=== PATIENT | female | born 1990 | race Caucasian/White ===

== ENCOUNTER 2019-12-28 22:02 | Observation (INO) ==
[2019-12-28] MEDS ORDERED: diazePAM 5 MG TABLET PO ONE (23:04)
[2019-12-28] MEDS ORDERED: DEXAMETHASONE SOD INJ 10 MG/ML VIAL IM ONE (23:04)
[2019-12-28] MEDS ORDERED: LIDOCAINE 5% 1 PATCH TD STA (23:04)
[2019-12-29] MEDS ORDERED: ACETAMINOPHEN 1,000 MG/100 ML VIAL IV STA (00:44)
--- NOTE | 2019-12-29 00:56 | Emergency Department Note ---
Impression & Plan Strain of lumbar region, Intractable low back pain ED Provider Note NAME: NICOLASA REZA AGE: 29 SEX: F ARRIVES VIA: Ambulance INFORMANT: Patient, ED PROVIDER(S): Gustabo Pineda MD CHIEF COMPLAINT: Back pain PLAN: Disposition: Admit MEDICAL DECISION MAKING: The patient is a pleasant 29-year-old woman who presents emergency department with acute onset back pain when she bent over just prior to arrival experienced severe left lower back pain which she reports is so severe she is unable to move or ambulate and so called EMS and was brought to the hospital. She did receive Toradol by EMS and she reported some improvement but still was unable to ambulate. She denies any urinary retention and was able to provide a urine sample in the emergency department. She denies any history of similar episodes of back pain. Prior to today she reports feeling healthy denies any fevers, chills, cough, congestion, nausea, vomiting, diarrhea. On arrival the patient is uncomfortable no acute distress, afebrile stable vital signs. On exam the patient has mild tenderness of the left lower lumbar paraspinal muscles extending over the left gluteal region. There is no midline tenderness or step- offs. She has reproducible pain with bilateral straight leg raises but no radicular symptoms per se. She has 5/5 strength in bilateral lower extremities. DTRs within normal limits. No clonus. L5 intact bilaterally. Given the patient denies any symptoms to suggest cord compression and her exam is reassuring we initially proceeded with symptomatic treatment. She was given Valium, Decadron, lidocaine patch and she was reporting some improvement. We did agree to proceed with plan for outpatient follow-up and were providing a walker to help with stability given that she reports she lives alone and has no friends or family locally to help her. Unfortunately upon preparing the patient for discharge she was unable to get up from the stretcher and began to writhe in pain and became tearful. Thus, we did agree to proceed with basic blood work and MRI. However given the patient clearly has intractable back pain will provide narcotics for pain relief and admit for pain control. She is agreeable with this plan. Case was discussed with admitting resdient Dr. Kearns with Dr. Aguirre, [facility] hospitalist, who will evaluate the patient for admission. WBC, H/H, platelets wnl. Chemistry without acidosis. LFTs and electrolytes unremarkable. UA without convincing evidence of infection. MRI pending. Triage Nursing notes reviewed and agree them. Prior medical records reviewed Vital Signs: reviewed and remarkable for no significant abnormalities Differential diagnosis: Musculoskeletal, disc herniation, fracture, metastatic disease, cord compressio n, discitis, sciatica, cauda equina, infection, aortic disease, renal colic, gastrointestinal, as well as other pathologies. ER treatment provided: See below. Laboratory studies: See below Consultation(s): Case was discussed with admitting resdient Dr. Kearns with Dr. Aguirre, [facility] hospitalist, who will evaluate the patient for admission. HPI: The patient is a pleasant 29-year-old woman who presents emergency department with acute onset back pain when she bent over just prior to arrival experienced severe left lower back pain which she reports is so severe she is unable to move or ambulate and so called EMS and was brought to the hospital. She did receive Toradol by EMS and she reported some improvement but still was unable to ambulate. She denies any urinary retention and was able to provide a urine sample in the emergency department. She denies any history of similar epi sodes of back pain. Prior to today she reports feeling healthy denies any fevers, chills, cough, congestion, nausea, vomiting, diarrhea. ROS: See above HPI for pertinent positives & negatives. A total of 10 systems reviewed and were otherwise negative. PAST MEDICAL HISTORY:See Below PAST SURGICAL HISTORY:See Below FAMILY HISTORY:See Below SOCIAL HISTORY:See Below HOME MEDICATIONS:See Below ALLERGIES:See Below VITALS:See Below PHYSICAL EXAMINATION: GENERAL: Awake, alert, uncomfortable-appearing, in no distress HENT: Normocephalic, atraumatic. Oropharynx with dry mucous membranes and otherwise unremarkable. EYES: Normal conjunctiva. Sclera non-icteric. NECK: Supple. No nuchal rigidity. FROM. No JVD. RESPIRATORY: Clear to auscultation. CARDIAC: Regular rate, normal rhythm. Extremities warm and well perfused. Pulses equal. ABDOMEN: Soft, non-distended. No tenderness to palpation. No rebound or guarding. No masses. RECTAL: Deferred. MUSCULOSKELETAL: Chest examination reveals no tenderness. The back is symmetrical on inspection without obvious abnormality. There is no CVA tenderness to palpation. No joint edema. LOWER EXTREMITIES: Calves are equal size bilaterally and non-tender. No edema. No discoloration. NEURO: Normal sensorium. No sensory or motor deficits noted. 5/5 strength and SILT x 4 extremities. DTRs wnl. No clonus. L5 intact bilaterally. SKIN: No rash or jaundice noted. Gustabo Pineda MD Past Med/Surg History Medical History ADHD Anxiety Social History Smoking Status: Current every day smoker Tobacco Type: E-cigarettes / Vaping Preferred Language: Indonesian current occupational status: student Feels Safe at Home: Yes Allergies Allergies Allergy/AdvReac Type Severity Reaction Status Date / Time sulfamethoxazole Allergy Hives Verified 12/28/19 22:27 [From Bactrim] trimethoprim [From Bactrim] Allergy Hives Verified 12/28/19 22:27 Home Meds Home Medications Medication Instructions Recorded Confirmed dextroamphetamine-amphetamine 10 mg PO BID 07/30/18 12/28/19 [Adderall] Previous Rx's Medication Instructions Recorded ibuprofen 800 mg PO Q8H PRN #30 tab 12/28/19 Results & Data (ED) Vital Signs Vital Signs - 24 hr 12/28/19 22:10 12/29/19 00:01 12/29/19 02:40 Temperature 37.2 C Temperature Source Oral Pulse Rate 82 Pulse Rate [Apical] 74 68 Respiratory Rate 18 16 16 Respiratory Effort / Characteristics Non-Labored Spontaneous Respiratory Depth Normal Blood Pressure 129/74 Blood Pressure [Left Arm] 142/99 H 136/88 Blood Pressure Mean 92 Blood Pressure Mean [Left Arm] 113 104 Blood Pressure Position Sitting Pulse Oximetry 97 100 96 Oxygen Delivery Method Room Air Room Air Room Air Sepsis Recent Fever Within 48 Hours No Sepsis New/Unexplained Change in Mental Status No Sepsis Action Taken by Nursing No Action Required 12/29/19 03:41 Temperature Temperature Source Pulse Rate 70 Pulse Rate [Apical] Respiratory Rate 18 Respiratory Effort / Characteristics Respiratory Depth Blood Pressure 141/83 H Blood Pressure [Left Arm] Blood Pressure Mean Blood Pressure Mean [Left Arm] Blood Pressure Position Pulse Oximetry 98 Oxygen Delivery Method Room Air Sepsis Recent Fever Within 48 Hours Sepsis New/Unexplained Change in Mental Status Sepsis Action Taken by Nursing Laboratory Data Attestation: I reviewed the patient's lab results. Result diagrams: 12/29/19 01:00 12/29/19 01:00 Lab Results 12/28/19 12/28/19 12/29/19 Range/Units 22:25 22:47 01:00 WBC 8.77 (4.8-10.8) K/uL RBC 4.38 (4.2-5.4) M/uL Hgb 14.1 (12.0-16.0) g/dL Hct 41.6 (37-47) % MCV 95.0 (80-100) fL MCH 32.2 (25-34) pg MCHC 33.9 (32-36) g/dL RDW Std Deviation 45.8 (36.4-46.3) fL RDW Coeff of Anitha 13.2 (11.5-14.5) % Plt Count 283 (130-400) K/uL MPV 10.4 (7.4-10.4) fL Immature Gran % (Auto) 0.1 % Neut % (Auto) 83.8 % Lymph % (Auto) 12.5 % [place] % (Auto) 2.7 % Eos % (Auto) 0.7 % Baso % (Auto) 0.2 % Neut # (Auto) 7.34 H (1.4-6.5) K/uL Lymph # (Auto) 1.10 L (1.2-3.4) K/uL [place] # (Auto) 0.24 (0.11-0.59) K/uL Eos # (Auto) 0.06 (0-0.5) K/uL Baso # (Auto) 0.02 (0-0.2) K/uL Immature Gran # (Auto) 0.01 (0.00-0.02) K/uL Sodium (136-145) mmol/L Potassium (3.5-5.1) mmol/L Chloride (98-107) mmol/L Carbon Dioxide (21-32) mmol/L Anion Gap (3-11) BUN (7-18) mg/dl Creatinine (0.6-1.2) mg/dl Est Cr Clr Drug Dosing ml/min Est GFR ( Amer) Est GFR (Non-Af Amer) BUN/Creatinine Ratio (10-20) Glucose (70-99) mg/dl Calcium (8.5-10.1) mg/dl Total Bilirubin (0.2-1) mg/dl AST (15-37) U/L ALT (12-78) U/L Alkaline Phosphatase (45-117) U/L Total Protein (6.4-8.2) gm/dl Albumin (3.4-5.0) gm/dl Globulin (2.5-4.0) gm/dl Albumin/Globulin Ratio (0.9-2) Urine Color Yellow Urine Appearance Slightly Cloudy (Clear) Urine pH 7.0 (4.5-7.5) Ur Specific [place] 1.015 (1.000-1.030) Urine Protein Negative (Negative) Urine Glucose (UA) Negative (Negative) Urine Ketones Negative (Negative) Urine Blood 1+ H (Negative) Urine Nitrite Negative (Negative) Urine Bilirubin Negative (Negative) Urine Urobilinogen Negative (Negative) Ur Leukocyte Esterase Negative (Negative) Urine RBC 0-4 (0-4) /hpf Urine WBC 0-5 (0-5) /hpf Ur Epithelial Cells 20-30 H (0-5) /lpf Urine Bacteria 1+ H (Negative) POC Ur Test NEG (NEG) 12/29/19 Range/Units 01:00 WBC (4.8-10.8) K/uL RBC (4.2-5.4) M/uL Hgb (12.0-16.0) g/dL Hct (37-47) % MCV (80-100) fL MCH (25-34) pg MCHC (32-36) g/dL RDW Std Deviation (36.4-46.3) fL RDW Coeff of Anitha (11.5-14.5) % Plt Count (130-400) K/uL MPV (7.4-10.4) fL Immature Gran % (Auto) % Neut % (Auto) % Lymph % (Auto) % [place] % (Auto) % Eos % (Auto) % Baso % (Auto) % Neut # (Auto) (1.4-6.5) K/uL Lymph # (Auto) (1.2-3.4) K/uL [place] # (Auto) (0.11-0.59) K/uL Eos # (Auto) (0-0.5) K/uL Baso # (Auto) (0-0.2) K/uL Immature Gran # (Auto) (0.00-0.02) K/uL Sodium 140 (136-145) mmol/L Potassium 4.0 (3.5-5.1) mmol/L Chloride 109 H (98-107) mmol/L Carbon Dioxide 24 (21-32) mmol/L Anion Gap 7.0 (3-11) BUN 14 (7-18) mg/dl Creatinine 0.82 (0.6-1.2) mg/dl Est Cr Clr Drug Dosing 113.7 ml/min Est GFR ( Amer) 112.1 Est GFR (Non-Af Amer) 96.7 BUN/Creatinine Ratio 16.6 (10-20) Glucose 100 H (70-99) mg/dl Calcium 8.4 L (8.5-10.1) mg/dl Total Bilirubin 0.4 (0.2-1) mg/dl AST 14 L (15-37) U/L ALT 30 (12-78) U/L Alkaline Phosphatase 74 (45-117) U/L Total Protein 7.1 (6.4-8.2) gm/dl Albumin 3.7 (3.4-5.0) gm/dl Globulin 3.4 (2.5-4.0) gm/dl Albumin/Globulin Ratio 1.1 (0.9-2) Urine Color Urine Appearance (Clear) Urine pH (4.5-7.5) Ur Specific [place] (1.000-1.030) Urine Protein (Negative) Urine Glucose (UA) (Negative) Urine Ketones (Negative) Urine Blood (Negative) Urine Nitrite (Negative) Urine Bilirubin (Negative) Urine Urobilinogen (Negative) Ur Leukocyte Esterase (Negative) Urine RBC (0-4) /hpf Urine WBC (0-5) /hpf Ur Epithelial Cells (0-5) /lpf Urine Bacteria (Negative) POC Ur Test (NEG) Administered Medications Discontinued Medications Dexamethasone (Dexamethasone Sod Inj 10 Mg/Ml Vial) 10 mg IM NOW ONE Stop: 12/28/19 23:05 Last Admin: 12/28/19 23:11 Dose: 10 mg Documented by: [id number] Diazepam (Diazepam 5 Mg Tablet) 5 mg PO NOW ONE Stop: 12/28/19 23:05 Last Admin: 12/28/19 23:11 Dose: 5 mg Documented by: [id number] Acetaminophen (Ofirmev) 1,000 mg in 100 mls @ 400 mls/hr IV NOW STA Stop: 12/29/19 00:58 Last Infusion: 12/29/19 01:40 Dose: 0 mls/hr Documented by: [id number] Admin: 12/29/19 01:12 Dose: 400 mls/hr Documented by: [id number] Lidocaine (Lidocaine 5% 1 Patch) 1 patch TD NOW STA Stop: 12/28/19 23:05 Last Admin: 12/28/19 23:10 Dose: 1 patch Documented by: [id number] Morphine Sulfate (Morphine Sulfate 10 Mg/Ml Carp/Vial) 6 mg IV NOW STA Stop: 12/29/19 00:45 Last Admin: 12/29/19 01:26 Dose: Not Given Documented by: [id number] Blood Pressure Blood Pressure Findings: Elevated blood pressure Blood Pressure Disposition: elevated BP felt to be situational Discharge Plan Visit Data Chief Complaint: Back Injury/Pain Stated Complaint: BACK PAIN ED Provider: Gustabo Pineda Discharge Problem: Strain of lumbar region, Intractable low back pain Patient Disposition: Home - Self-Care Condition: Good Discharge Instructions Laura/Other Patient Handouts: ED Back Sprain/Strain Activity Restrictions/Additional Instructions: Please follow up with your primary care physician in the next 1-3 days for re- evaluation. Your symptoms are likely related to a lumbar strain with associated muscle spasms. Otherwise, your exam did not show signs of an emergent condition at this time. Acetaminophen (650mg every 4 hours) and Ibuprofen (800mg every 8 hours) for pain. Apply heating pad at 20 minute intervals for additional muscle relaxation. [id number] Lidoderm patch for additional pain relief. Avoid movements, which may provoke symptoms. Drink plenty of fluids to ensure hydration. Return to the emergency department for worsening symptoms as described in the accompanying instructions. Interventions: ED Discharge Assessment Last Done: 12/29/19 03:41 Forms Stand Alone Forms: [facility], [facility] Emergency Department, Important Visit Information Prescriptions Prescriptions: New ibuprofen 800 mg tablet 800 mg PO Q8H PRN (Reason: pain) Qty: 30 RF: 0 No Action dextroamphetamine-amphetamine [Adderall] 10 mg Tablet 10 mg PO BID RF: 0 Referrals Referrals: [facility] [Primary Care Provider] -
[2019-12-29 01:10] LABS: Basophils # (auto) 0.02 K/uL (0-0.2); Basophils % (auto) 0.2 %; Eosinophils # (auto) 0.06 K/uL (0-0.5); Eosinophils % (auto) 0.7 %; Hematocrit (blood only) 41.6 % (37-47); Hemoglobin 14.1 g/dL (12.0-16.0); Immature Granulocytes # (auto) 0.01 K/uL (0.00-0.02); Immature Granulocytes % (auto) 0.1 %; Lymphocytes % (auto) 12.5 %; Mean Corpuscular Hemoglobin 32.2 pg (25-34); Mean Corpuscular Hgb Conc 33.9 g/dL (32-36); Mean Platelet Volume 10.4 fL (7.4-10.4); Monocytes # (auto) 0.24 K/uL (0.11-0.59); Monocytes % (auto) 2.7 %; Neutrophils # (auto) 7.34 K/uL (1.4-6.5); Neutrophils % (auto) 83.8 %; Platelet Count 283 K/uL (130-400); RDW Coefficient of Variation 13.2 % (11.5-14.5); RDW Standard Deviation 45.8 fL (36.4-46.3); Red Blood Count 4.38 M/uL (4.2-5.4); White Blood Count 8.77 K/uL (4.8-10.8)
[2019-12-29] MEDS: MoRPHine SULFATE 10 MG/ML CARP/VIAL IV STA ×2 (01:11→01:26)
--- NOTE | 2019-12-29 01:24 | History & Physical Report ---
Date of Service December 29, 2019 Assessment & Plan (1) Lumbar back pain: Bronwyn is a 29yo F with a PMHx of ADHD who presents with sudden onset back pain after bending over preventing her from ambulating. She is admitted for intractable back pain prevention ambulation. Back Pain with inability to ambulate - Acute onset after bending. - Mild improvement in ED with lidocaine, valium, toradol, decadron - No urinary retention, numbness/tingling, focal neurologic weakness, or saddle anesthesia - MRI L5-S1 posterior disc bulge with superimposed small central disc extrusion. Mild lateral recess and foraminal narrowing. Left facet arthropathy. Otherwise negative exam. - Follow observation in ED patient unable to ambulate from bed to wheelchair/walker and was recommended for admission - Defer narcotics - K-pad, baclofen, lidocaine PRN Toradol 15 mg IV every 6 as needed - If not improving or ambulating, consider pain management consult for facet arthropathy ADHD - On adderall outpatient, no irregularities. May hold while inpt. DVT PPx: SCDs Diet: Regular Dispo: Med/Surg Code Status: Full (2) Strain of lumbar region: History of Present Illness Chief Complaint: Back Pain Primary Care Provider: [facility] Bornwyn is a 29yo F with a PMHx of ADHD who presents with sudden onset back pain after bending over preventing her from ambulating. Bronwyn reports she was in her otherwise normal state of health today and was "doing great even went for a run" until the evening when she bent over to pick something up and 'felt a sudden pop and pull' and had instant 10/10 pain which caused her to fall to the floor where she could not move for an hour or two. After reaching the phone she called EMS who gave her toradol and transported her to [facility] ED where she recieved valium, decadron, and lidocaine with some improvement in her pain. She reports at rest she is 'ok' but with any movement of her feet/back she suddenly develops '10/10 awful' pain limited to her L lower back and which pino snot radiate into her leg. She reports that this pain makes her unable to sit up or get out of bed, and comes in waves improved by not moving but quickly brought back with any movement. She has urinated since her injury withotu difficulty or pain. No bowel incontinence. No numbness/tingling in the legs or feet. Denies other symptoms. Denies hx of similar injuries. Has been on narcotics only after gallbladder surgery and one short course with a sports injury. PDMP with no narcotic fills. Pt on adderall for ADHD. Family History of back surgeries. MedHx: ADHD Medications: Reviewed. PDMP reviewed. 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 PCP is Dr. Brooks at [facility]. No family in the area, lives along and independently ambulatory. Allergies Allergy/AdvReac Type Severity Reaction Status Date / Time sulfamethoxazole Allergy Hives Verified 12/28/19 22:27 [From Bactrim] trimethoprim [From Bactrim] Allergy Hives Verified 12/28/19 22:27 Home Medications Home Medications Medication Instructions Recorded Confirmed Type dextroamphetamine-amphetamine 10 mg PO BID 07/30/18 12/28/19 History [Adderall] ibuprofen 800 mg PO Q8H PRN #30 tab 12/28/19 Rx Past Med/Surg History Medical History ADHD Anxiety Social History Smoking Status: Current some day smoker Tobacco Type: E-cigarettes / Vaping Second Hand Exposure: No; Do You Dip or Chew Tobacco: No; Tobacco Cessation Education Requested by Patient: No Hx Alcohol Use: Yes Alcohol type: beer Hx Substance Use: No Preferred Language: Chinese Communication Ability: Effective Maintenance Fitter Required: No Beliefs That Will Affect Care: None Current Living Situation: Alone current occupational status: student Other Information That Helps Us Care for You: No Feels Safe at Home: Yes Safety Concerns: Feels Safe At This Time Review of Systems Review of Systems: Constitutional: Denies fever, chills, malaise, weight change Eyes: Denies double vision, vision change, eye pain ENT: Denies ear pain, sore throat, sinus pain Cardiovascular: Denies Chest pain, chest pressure, palpitations, extremity swelling Respiratory: Denies shortness of breath, cough, sputum production, difficulty breathing Gastrointestinal: Denies abdominal pain, nausea, vomiting, constipation, diarrhea Genitourinary: Denies pain with urination, urinary urgency, urinary frequency Musculoskeletal: Denies weakness. Pain as noted in HPI. Integumentary:Denies rash, lesions, bruising Neurological: Denies headache, numbness, tingling, focal weakness Physical Exam Physical Exam: General: A&Ox3. NAD. Cooperative. HEENT: Atraumatic, normocephalic. Pulm: CTAB A&P. -wheezes, -rales, -rhonchi. Symmetrical chest rise. No increase work of breathing. No respiratory distress. Cardiac: RRR, -mrg. Radial pulses intact and symmetrical. Abdominal: Nontender, nondistended, soft. BS present. CN II: Visual rai are full to confrontation. Pupils are equal and react to light and accomidation. Visual acuity grossly intact. CN III, IV, : At primary gaze, there is no eye deviation. EoM intact without nystagmus. No visual field cuts. CN V: Facial sensation is intact to soft touch in all 3 divisions bilaterally. CN VII: No facial asymmetry, full strength to eyebrow raise, smile, eye close, and cheek puff. CN VII: Hearing is grossly intact. CN IX, X: Phonation is normal without dysarthria. CN XI: Head turning intact CN XII: Tongue protrudes midline. Spinal: TTP at L lumbar paraspinal muscularure with increased tone. No midline spinal tenderness. No step-off on palpation. No overt lesions/deformities. Sensory: Light touch, pinprick intact in upper and low extremities without deficit or asymmetry. Strength: RUE: elbow flexion/extension, finger flexion/extension, channel specialist strength, in terosseous 5/5 LUE: elbow flexion/extension, finger flexion/extension, channel specialist strength, interosseous 5/5 RLE: Plantar/dorsiflexion intact 5/5, but limited by pain at L lower back. LLE: Plantar/dorsiflexion intact 5/5, but quickly limited by pain at L lower back. Results & Data Results & Data ([facility]) Vital Signs (Past 12 Hours) Vital Signs Temp Pulse Pulse Resp BP BP Pulse Ox 12/29/19 00:01 74 16 142/99 H 100 12/28/19 22:10 37.2 C 82 18 129/74 97 Supervising Physician Co-Signing Physician Notes Attending addendum: I have physically seen this patient, have supervised the medical residents activities, and agree with the H&P unless as otherwise noted. Assessment and Plan: Intractable low back pain/ambulatory dysfunction- MRI reveals L5-S1 posterior disc bulge with superimposed small central disc protrusion Left facet arthropathy. Treat conservatively with K pad, baclofen 10 mg p.o. 3 times daily as needed and Lidoderm patch. Toradol 15 mg IV every 6 hours as needed breakthrough pain Consult pain management and or orthopedic spine surgery if pain persists Remaining orders and notations as noted. Resident Activity Tracking Resident Involvement: Resident Care Provided Care Provided: Adult [facility]
[2019-12-29 01:28] LABS: Albumin Level 3.7 gm/dl (3.4-5.0); BUN Creatinine Ratio 16.6 (10-20); Calcium 8.4 mg/dl (8.5-10.1); Creatinine Clr Calc Pharmacy 113.7 ml/min; Est GFR (African American) 112.1; Est GFR (Non-African American) 96.7
[2019-12-29 01:31] LABS: Albumin Globulin Ratio 1.1 (0.9-2); Bilirubin,Total 0.4 mg/dl (0.2-1); Globulin 3.4 gm/dl (2.5-4.0); Total Protein 7.1 gm/dl (6.4-8.2)
[2019-12-29 02:06] LABS: Appearance Urine Slightly Cloudy (Clear); Bilirubin Urine Negative (Negative); Blood Urine 1+ (Negative); Color Urine Yellow; Glucose Urine UA Negative (Negative); Ketones Urine Negative (Negative); Leukocyte Esterase Urine Negative (Negative); Nitrite Urine Negative (Negative); Protein Urine Negative (Negative); Specific Gravity Urine 1.015 (1.000-1.030); Urobilinogen Urine Negative (Negative)
[2019-12-29 02:14] LABS: Bacteria Urine 1+ (Negative); Epithelial Cell Urine 20-30 /lpf (0-5); RBC Urine 0-4 /hpf (0-4); WBC Urine 0-5 /hpf (0-5)
[2019-12-29] MEDS ORDERED: KETOROLAC TROMETHAMINE 15 MG/ML VIAL IV ONE (04:40)
--- NOTE | 2019-12-29 07:08 | Magnetic Resonance Report ---
MR lumbar spine wo con CLINICAL HISTORY: intractable back pain TECHNIQUE: Sagittal and axial T1, T2 and STIR images were obtained. COMPARISON STUDY: None OBSERVATIONS: The vertebral bodies and posterior elements appear intact. There is no abnormal bony signal present t o suggest a marrow replacement process. L1-2: No disc protrusions or extrusions. No evidence of spinal canal or neural foraminal compromise. L2-3: No disc protrusions or extrusions. No evidence of spinal canal or neural foraminal compromise. L3-4: No disc protrusions or extrusions. No evidence of spinal canal or neural foraminal compromise. L4-5: No disc protrusions or extrusions. No evidence of spinal canal or neural foraminal compromise. L5-S1: There is an annular fissure and small central disc protrusion with minimal effacement the ante rior thecal sac. There is no foraminal stenosis. The conus medullaris and cauda equina appear normal. IMPRESSION: Small central disc protrusion at the L5-S1 level. ACT 112: Negative or not required by law. Electronically signed by: Serafin Fowler M.D. 12/29/2019 7:07 AM
[2019-12-29] MEDS: ACETAMINOPHEN 325 MG TAB PO PRN ×2 (07:59→14:41)
[2019-12-29] MEDS: BACLOFEN 10 MG TAB PO SCH ×2 (07:59→21:46)
--- NOTE | 2019-12-29 10:48 | Consultation ---
Date of Consultation December 29, 2019 Assessment & Plan (1) Intractable low back pain: 29-year-old presents with acute lower back pain x24 hours. MRI shows small disc protrusion L5-S1 with degenerative changes and retrolisthesis. No radicular complaints present. We will therefore recommend treating this conservatively. Recommend rest for the next 24 to 48 hours. Continue with aggressive pain control. Consider use of steroids. Typically within 10 to 14 days patient is back to baseline and most of her current symptoms will have resolved. At that point time her activity is as tolerated. Will sign off for now. If you have any further questions please do not hesitate to contact us. Follow-up on as-needed basis. Supervising Physician Co-Signing Physician Notes Dr. Cash Cobian History of Present Illness This is a pleasant 29-year-old female that we are asked to see in consultation regarding acute lower back pain. Patient is a student at [employer] and was in her apartment and bent over to pet her cat yesterday and had an acute onset of severe lower back pain. She had difficulty walking. She presented to the emergency room yesterday and was subsequently admitted for pain control. She denies radicular leg pain, paresthesia, numbness. She has had episodes of acute lower back pain in the past but not quite to this degree. Denies bowel or bladder dysfunction. Does see a chiropractor on an as-needed basis in the past. Will occasionally take ibuprofen for pain control. Attending Physician: Ming Aguirre MD Allergies Allergy/AdvReac Type Severity Reaction Status Date / Time sulfamethoxazole Allergy Hives Verified 12/28/19 22:27 [From Bactrim] trimethoprim [From Bactrim] Allergy Hives Verified 12/28/19 22:27 Home Medications Home Medications Medication Instructions Recorded Confirmed Type dextroamphetamine-amphetamine 10 mg PO BID 07/30/18 12/28/19 History [Adderall] ibuprofen 800 mg PO Q8H PRN #30 tab 12/28/19 Rx Patient History Medical History ADHD Anxiety Social History Smoking Status: Current some day smoker Tobacco Type: E-cigarettes / Vaping Second Hand Exposure: No; Do You Dip or Chew Tobacco: No; Tobacco Cessation Education Requested by Patient: No Hx Alcohol Use: Yes Alcohol type: beer Hx Substance Use: No Preferred Language: Czech Communication Ability: Effective Manager [employer] Required: No Beliefs That Will Affect Care: None Current Living Situation: Alone current occupational status: student Other Information That Helps Us Care for You: No Feels Safe at Home: Yes Safety Concerns: Feels Safe At This Time Review of Systems Review of Systems: All systems reviewed & are unremarkable except as noted in HPI & below Physical Exam Physical Exam: She is seen in bed 355 bed 1. She is cooperative exam. She is quite uncomfortable during our exam. Alert and oriented x3. She is able to roll over but with quite a bit of pain. She is tender to palpation to the midline lower lumbar spine. No abnormal skin markings, lacerations, ecchymosis throughout the thoracolumbar spine. Negative tension signs bilaterally. Motor testing is 5/5 bilateral EHL, dorsiflexion, plantarflexion, quadriceps, hamstrings, hip flexors, hip abductor's and hip adductor's. Sensations intact bilateral lower extremities. Constitutional: WD/WN, vitals as above Eyes: normal visual rai by confrontation ENMT: external ear and nose normal, oropharynx normal Neck: normal visual inspection Respiratory: normal respiratory effort Cardiovascular: Vessels: dorsalis pedis pulses present Chest (Breasts): Chest: normal inspection of chest Gastrointestinal (Abdomen): Inspection/Auscultation: abdomen normal to inspection Musculoskeletal: no cyanosis or clubbing, extremities motor strength 5/5 Spine: + limited thoraco-lumbar ROM Extremities: strength 5/5 throughout Skin: no rashes, warm and dry Neurologic: patellar DTR's 2+ bilat, sensation intact normal touch/pain/proprioception and moves all extremities Psychiatric: A+Ox3, euthymic affect Results & Data ([facility]) Vital Signs (Past 12 Hours) Vital Signs Temp Pulse Pulse Pulse Resp BP BP 12/29/19 07:21 37.1 C 71 15 107/70 12/29/19 04:30 36.6 C 66 18 119/76 12/29/19 03:41 70 18 141/83 H 12/29/19 02:40 68 16 136/88 12/29/19 00:01 74 16 142/99 H Pulse Ox 12/29/19 07:21 96 12/29/19 04:30 96 12/29/19 03:41 98 12/29/19 02:40 96 12/29/19 00:01 100 Diagnostic Findings [place], [place] [phone] Magnetic Resonance Report Patient: Ana REZA Date: 12/29/19 MR#: [id number]: [address] Acct ID:[id number]: Date: [address] Zip: [place] [address] Age: 29Location: 3W Sex: F Room/Bed: [facility] Att Phy: Ming Aguirre M.D.Diagnosis: BACK PAIN [facility]: [facility] Fam Phy:Interpreting Phy: Serafin Fowler MD Admit Phy: Giovani Kearns MD Ordering Phy: Gustabo Pineda M.D. cc: ~ MR lumbar spine wo con CLINICAL HISTORY: intractable back pain TECHNIQUE: Sagittal and axial T1, T2 and STIR images were obtained. COMPARISON STUDY: None OBSERVATIONS: The vertebral bodies and posterior elements appear intact. There is no abnormal bony signal present to suggest a marrow replacement process. L1-2: No disc protrusions or extrusions. No evidence of spinal canal or neural foraminal compromise. L2-3: No disc protrusions or extrusions. No evidence of spinal canal or neural foraminal compromise. L3-4: No disc protrusions or extrusions. No evidence of spinal canal or neural foraminal compromise. L4-5: No disc protrusions or extrusions. No evidence of spinal canal or neural foraminal compromise. L5-S1: There is an annular fissure and small central disc protrusion with minimal effacement the anterior thecal sac. There is no foraminal stenosis. The conus medullaris and cauda equina appear normal. IMPRESSION: Small central disc protrusion at the L5-S1 level. ACT 112: Negative or not required by law. Electronically signed by: Serafin Fowler M.D. 12/29/2019 7:07 AM Dictated: 12/29/19704 Transcribed: 12/29/19704
[2019-12-29] MEDS: KETOROLAC TROMETHAMINE 15 MG/ML VIAL IV PRN ×2 (11:22→17:56)
[2019-12-29] MEDS: predniSONE 50 MG TAB PO SCH (12:35)
--- NOTE | 2019-12-29 18:07 | Hospitalist Progress Note ---
Date of Service December 29, 2019 Assessment & Plan (1) Intractable low back pain: - MRI with small disc protrusion L5-S1 with degenerative changes and retrolisthesis. No radiculopathy - per surgery consult, conservative treatment for now with rest over the next 24 - 48 hours - Will start prednisone 50 mg po daily per surgery rec for steroids - continue lidocaine patches, baclofen, K pad, Toradol - add tramadol 50 mg q6h - If pain continues to be severe tomorrow, will consult pain management Admission and Anticipated Discharge Date Admission Date: December 29, 2019 Subjective Ms. Arias continues to be in severe pain in her lower back. No radiculopathy. No loss of control of bowel or bladder. No numbness. Patient reports a strong history of lumbar back degenerative disc in her family with a sister who required surgery at age 19. ROS Constitutional: no chills, aches, sweats or fever Respiratory: no sob,cough, sputum, or wheezing Cardiac: no chest pain, palpitations, edema, orthopnea or lightheadedness GI: no abdominal pain, nausea, vomiting, diarrhea or constipation : no dysuria or hesitancy Extremities: no joint pain or weakness Skin: no rash All other systems reviewed and negative Physical Exam Physical Exam: General: no distress Eyes: normal inspection, PERLL Respiratory: chest non tender, clear to auscultation, normal breath sounds, no respiratory distress, no accessory muscle use Cardiac: regular rate and rhythm, no rub or gallop, no murmur, no edema, no jvd GI/: active bowel sounds, no abd pain or tenderness, soft, non distended Extremities: normal range of motion, normal strength, non tender, lower back wedger to palpation Neuro/Psych: alert and oriented x 3, normal mood and affect Skin: normal color, dry Results & Data Results & Data ([facility]) Vital Signs (Past 12 Hours) Vital Signs Temp Pulse Resp BP Pulse Ox 12/29/19 07:21 37.1 C 71 15 107/70 96 PG Care Time/CCT Total # of Minutes Spent Total Time Spent with Patient: Total time spent is greater than 50% in coordination of care (as documented) at patient's floor/unit and/or counseling patient: Coding Level of Care Code None Diagnoses Intractable low back pain M54.5
[2019-12-29] MEDS: ACETAMINOPHEN 500 MG TAB PO SCH (19:50)
[2019-12-30] MEDS: TRAMADOL HCL 50 MG TABLET PO PRN ×3 (01:30→19:49)
--- NOTE | 2019-12-30 01:34 | Billing Data ---
Date of Service December 30, 2019 Coding Level of Care Code 58610 OBS Care - Level 3
[2019-12-30] MEDS: ACETAMINOPHEN 500 MG TAB PO SCH ×3 (02:35→18:00)
[2019-12-30 06:51] LABS: BUN Creatinine Ratio 16.1 (10-20); Calcium 8.6 mg/dl (8.5-10.1); Creatinine Clr Calc Pharmacy 129.9 ml/min; Est GFR (African American) 133.4; Est GFR (Non-African American) 115.1; Potassium 3.7 mmol/L (3.5-5.1)
[2019-12-30] MEDS: LIDOCAINE 5% 1 PATCH TD SCH (08:09)
[2019-12-30] MEDS: BACLOFEN 10 MG TAB PO SCH ×2 (08:10→19:51)
[2019-12-30] MEDS: predniSONE 50 MG TAB PO SCH (08:11)
[2019-12-30] MEDS: KETOROLAC TROMETHAMINE 15 MG/ML VIAL IV PRN (15:36)
--- NOTE | 2019-12-30 16:55 | Hospitalist Progress Note ---
Date of Service December 30, 2019 Assessment & Plan (1) Intractable low back pain: - MRI with small disc protrusion L5-S1 with degenerative changes and retrolisthesis. No radiculopathy - per surgery consult, conservative treatment for now with rest over the next 24 - 48 hours - Continue prednisone 50 mg po daily - continue lidocaine patches, baclofen, K pad, Toradol - add tramadol 50 mg q6h - Pain is improving, was able to ambulate today with a walker and assistance, hopefully will be improved enough for home tomorrow morning. Admission and Anticipated Discharge Date Admission Date: December 29, 2019 Subjective Ms. Arias is improving slowly. This afternoon she was able to ambulate with a walker and assistance to the bathroom. No radiculopathy or loss of control of bowel or bladder, no numbness ROS Constitutional: no chills, aches, sweats or fever Respiratory: no sob,cough, sputum, or wheezing Cardiac: no chest pain, palpitations, edema, orthopnea or lightheadedness GI: no abdominal pain, nausea, vomiting, diarrhea or constipation : no dysuria or hesitancy Extremities: no joint pain or weakness Skin: no rash All other systems reviewed and negative Physical Exam Physical Exam: General: no distress Eyes: normal inspection, PERLL Respiratory: chest non tender, clear to auscultation, normal breath sounds, no respiratory distress, no accessory muscle use Cardiac: regular rate and rhythm, no rub or gallop, no murmur, no edema, no jvd GI/: active bowel sounds, no abd pain or tenderness, soft, non distended Extremities: normal range of motion, normal strength, non tender Neuro/Psych: alert and oriented x 3, normal mood and affect Skin: normal color, dry Results & Data Results & Data ([facility]) Vital Signs (Past 12 Hours) Vital Signs Temp Pulse Resp BP Pulse Ox 12/30/19 15:24 36.5 C 65 16 122/72 96 12/30/19 07:26 36.8 C 71 14 100/65 95 PG Care Time/CCT Total # of Minutes Spent Total Time Spent with Patient: Total time spent is greater than 50% in coordination of care (as documented) at patient's floor/unit and/or counseling patient: Coding Level of Care Code 38661 Subseq Hosp Care Lvl 2 Diagnoses Intractable low back pain M54.5
[2019-12-31] MEDS: ACETAMINOPHEN 500 MG TAB PO SCH ×3 (01:13→17:22)
[2019-12-31 06:56] LABS: BUN Creatinine Ratio 21.6 (10-20); Calcium 8.6 mg/dl (8.5-10.1); Creatinine Clr Calc Pharmacy 122.9 ml/min; Est GFR (African American) 124.8; Est GFR (Non-African American) 107.7; Potassium 3.7 mmol/L (3.5-5.1)
[2019-12-31] MEDS: predniSONE 50 MG TAB PO SCH (08:53)
[2019-12-31] MEDS: BACLOFEN 10 MG TAB PO SCH ×2 (08:53→20:31)
[2019-12-31] MEDS: LIDOCAINE 5% 1 PATCH TD SCH (08:53)
[2019-12-31] MEDS: TRAMADOL HCL 50 MG TABLET PO PRN ×3 (08:59→22:20)
[2019-12-31] MEDS: KETOROLAC TROMETHAMINE 15 MG/ML VIAL IV PRN (14:08)
--- NOTE | 2019-12-31 15:52 | Hospitalist Progress Note ---
Date of Service December 31, 2019 Assessment & Plan (1) Intractable low back pain: - MRI with small disc protrusion L5-S1 with degenerative changes and retrolisthesis. No radiculopathy - per surgery consult, conservative treatment for now with rest over the next 24 - 48 hours - Continue prednisone 50 mg po daily - will start tapering down tomorrow - continue lidocaine patches, baclofen, K pad, Toradol, tramadol 50 mg q6h - Pain is improving but very slowly and still prohibits her from mobilizing far enough to get home safely. Will increase baclofen and consult pain management Admission and Anticipated Discharge Date Admission Date: December 29, 2019 Subjective Ms. Arias had been feeling better, getting up to the bathroom with walker. However this afternoon she was attempting to ambulate a similar distance to get into her car and into her apartment and it was extremely painful and required a lot support from nursing. She is not having radicular symptoms. Pain is at times in her left hip but she feels that is from previous hip issues. No numbness. No loss of control of bowel or bladder. ROS Constitutional: no chills, aches, sweats or fever Respiratory: no sob,cough, sputum, or wheezing Cardiac: no chest pain, palpitations, edema, orthopnea or lightheadedness GI: no abdominal pain, nausea, vomiting, diarrhea or constipation : no dysuria or hesitancy Extremities: no joint pain or weakness Skin: no rash All other systems reviewed and negative Physical Exam Physical Exam: General: no distress Eyes: normal inspection, PERLL Respiratory: chest non tender, clear to auscultation, normal breath sounds, no respiratory distress, no accessory muscle use Cardiac: regular rate and rhythm, no rub or gallop, no murmur, no edema, no jvd GI/: active bowel sounds, no abd pain or tenderness, soft, non distended Extremities: normal range of motion, lower extremity weakness, non tender Neuro/Psych: alert and oriented x 3, normal mood and affect Skin: normal color, dry Results & Data Results & Data ([facility]) Vital Signs (Past 12 Hours) Vital Signs Temp Pulse Resp BP Pulse Ox 12/31/19 08:30 36.9 C 66 16 118/80 95 PG Care Time/CCT Total # of Minutes Spent Total Time Spent with Patient: Total time spent is greater than 50% in co ordination of care (as documented) at patient's floor/unit and/or counseling patient: Coding Level of Care Code 45821 Subseq Hosp Care Lvl 2 Diagnoses Intractable low back pain M54.5
[2020-01-01] MEDS: KETOROLAC TROMETHAMINE 15 MG/ML VIAL IV PRN (01:31)
[2020-01-01] MEDS: ACETAMINOPHEN 500 MG TAB PO SCH ×2 (02:46→11:03)
[2020-01-01 07:02] LABS: Calcium 8.6 mg/dl (8.5-10.1); Creatinine Clr Calc Pharmacy 144.1 ml/min; Est GFR (African American) 139.8; Est GFR (Non-African American) 120.6; Potassium 3.7 mmol/L (3.5-5.1)
[2020-01-01] MEDS: TRAMADOL HCL 50 MG TABLET PO PRN (08:02)
--- NOTE | 2020-01-01 08:46 | Pain Management Consultation ---
Date of Consultation January 01, 2020 Assessment & Plan (1) Strain of lumbar region: Present on Admission?: Yes (2) Lumbar back pain: * MRI findings reviewed with the patient which revealed a small central disc protrusion with minimal effacement of the anterior thecal sac and no evidence of central canal or foraminal stenosis. We discussed likely etiology of her presenting complaints as myofascial/acute lumbar strain in etiology with questionable underlying lumbar facet versus SI joint contribution. Would recommend ongoing conservative management as she is symptomatically improving. There is no role for interventional treatment at this time. * Continue with current medications without change * Recommend PT evaluation and treatment upon discharge. Returning to activity recommendations were discussed with patient and she verbalized understanding. * Patient may undergo outpatient pain clinic evaluation as needed. Thank you for allowing us to participate in the care of Mrs. Arias. Present on Admission?: Yes History of Present Illness Reason for Consultation: Intractable low back Requesting Physician: ARACELIS Black Attending Physician: Elie Catalan DO History of Present Illness Mrs. Arias is a 29-year-old white female who was admitted with acute onset of axial low back pain 3 days ago without known injury. Patient reported that she bent over to pick something up and felt acute sharp pain in the axial lumbosacral junction which was slightly right greater than left-sided initially. Patient reported difficulty moving or ambulating due to the discomfort which led to emergent evaluation. Patient was admitted due to intractable low back pain and has been hospitalized over the past 3 days. Patient reports that her pain is much improved today indicating that her pain is a 2-3/10 across the lumbosacral junction equal bilaterally. She reports increased pain with movement and occasional sharp spasming pain. She continues to deny a radicular pain traveling into the lower extremities. She has not experienced radicular pain or paresthesias over the past 3 days. Patient denies weaknesses in lower extremity, foot drop or episodes of falling. She denies bowel or bladder incontinence or saddle anesthesias. Patient reports prior history of similar but less severe back pain and has intermittently dealt with axial low back pain over the past 10 years. Patient reports diminished levels of activity third COVID-19 pandemic this spring but was working out on a regular basis with weightlifting and running. She reports family history of a sister with back surgery at the age of 19 and mother with back pain complaints as well. Patient has no further constitutional complaints at this time is eager to be discharged as she is feeling "much better today". Plan of care discussed with Dr. Tiffanie Corrales. Pain Assessment Full Body Front + Back: 1. 100% axial thoracolumbar pain Pain scale - at its best (0-10): 2 Pain scale - at its worst (0-10): 6 Allergies Allergy/AdvReac Type Severity Reaction Status Date / Time sulfamethoxazole Allergy Hives Verified 12/28/19 22:27 [From Bactrim] trimethoprim [From Bactrim] Allergy Hives Verified 12/28/19 22:27 Home Medications Home Medications Medication Instructions Recorded Confirmed Type dextroamphetamine-amphetamine 10 mg PO BID 07/30/18 12/28/19 History [Adderall] ibuprofen 800 mg PO Q8H PRN #30 tab 12/28/19 Rx Pain History Pain Intensity Pain scale - at its best (0-10): 2 Pain scale - at its worst (0-10): 6 Patient History Medical History ADHD Anxiety Social History Smoking Status: Current some day smoker Tobacco Type: E-cigarettes / Vaping Second Hand Exposure: No; Do You Dip or Chew Tobacco: No; Tobacco Cessation Education Requested by Patient: No Hx Alcohol Use: Yes Alcohol type: beer Hx Substance Use: No Preferred Language: Citizen Of [place] Communication Ability: Effective Director Of Occupational Therapy Required: No Beliefs That Will Affect Care: None Current Living Situation: Alone current occupational status: student Other Information That Helps Us Care for You: No Feels Safe at Home: Yes Safety Concerns: Feels Safe At This Time Physical Exam Physical Exam: General: Patient lying quietly in exam room in no acute distress. Speech and thought process appropriate. Mood and affect appropriate. Cognition intact. Head: Normocephalic and atraumatic. ENT: No evidence of nasal or oral mucosal lesions. Mucous membranes are moist. Eyes: Pupils equal round reactive to light. Neck: Supple without adenopathy and full range of motion. Abdomen: Soft and nondistended. No organomegaly. Bowel sounds active. Back/spine: Patient able to logroll towards the left for physical exam. Loss of lumbar lordosis. Patient tender over the thoracolumbar junction which is nonfocal to the midline or facet joints. Slight increased tenderness over the left greater than right SI joint to provocative testing. Slightly hyperalgesic response in the myofascial region involving the quadratus lumborum along the iliac crest left greater than right-sided. Minimal spasm. No definable myoneural trigger points. Lower extremities: SLR increased axial low back pain bilaterally. Strength testing 5/5 with dorsiflexion and plantar flexion. Sensation intact. Neurologic: Cranial nerves grossly intact. Ambulatory function not witnessed. Babinski downgoing bilaterally. [facility] ([facility]) Diagnostic Review MRI: non enhanced and reports reviewed MRI Findings: [place], [place] [phone] Magnetic Resonance Report Patient: Ana ARIAS Date: 12/29/19 MR#: [id number]: [address] Acct ID:[id number]: Date: [address] Zip: [place] [address] Age: 29Location: 3W Sex: F Room/Bed: [facility] Att Phy: Ming Aguirre M.D.Diagnosis: BACK PAIN [facility]: [facility] Fam Phy:Interpreting Phy: Serafin Fowler MD Admit Phy: Giovani Kearns MD Ordering Phy: Gustabo Pineda M.D. cc: ~ MR lumbar spine wo con CLINICAL HISTORY: intractable back pain TECHNIQUE: Sagittal and axial T1, T2 and STIR images were obtained. COMPARISON STUDY: None OBSERVATIONS: The vertebral bodies and posterior elements appear intact. There is no abnormal bony signal present to suggest a marrow replacement process. L1-2: No disc protrusions or extrusions. No evidence of spinal canal or neural foraminal compromise. L2-3: No disc protrusions or extrusions. No evidence of spinal canal or neural foraminal compromise. L3-4: No disc protrusions or extrusions. No evidence of spinal canal or neural foraminal compromise. L4-5: No disc protrusions or extrusions. No evidence of spinal canal or neural foraminal compromise. L5-S1: There is an annular fissure and small central disc protrusion with minimal effacement the anterior thecal sac. There is no foraminal stenosis. The conus medullaris and cauda equina appear normal. IMPRESSION: Small central disc protrusion at the L5-S1 level. ACT 112: Negative or not required by law. Electronically signed by: Serafin Fowler M.D. 12/29/2019 7:07 AM Dictated: 12/29/19 07 Transcribed: 12/29/19 0705
[2020-01-01] MEDS ORDERED: predniSONE 20 MG TAB PO SCH (09:00)
[2020-01-01] MEDS: BACLOFEN 10 MG TAB PO SCH ×2 (09:32→13:03)
[2020-01-01] MEDS: LIDOCAINE 5% 1 PATCH TD SCH (09:33)
--- NOTE | 2020-01-01 10:32 | Discharge Summary ---
Date of Service January 01, 2020 Admission HPI Per Admitting Provider Bronwyn is a 29yo F with a PMHx of ADHD who presents with sudden onset back pain after bending over preventing her from ambulating. Bronwyn reports she was in her otherwise normal state of health today and was "doing great even went for a run" until the evening when she bent over to pick something up and 'felt a sudden pop and pull' and had instant 10/10 pain which caused her to fall to the floor where she could not move for an hour or two. After reaching the phone she called EMS who gave her toradol and transported her to [facility] where she recieved valium, decadron, and lidocaine with some improvement in her pain. She reports at rest she is 'ok' but with any movement of her feet/back she suddenly develops '10/10 awful' pain limited to her L lower back and which pino snot radiate into her leg. She reports that this pain makes her unable to sit up or get out of bed, and comes in waves improved by not moving but quickly brought back with any movement. She has urinated since her injury withotu difficulty or pain. No bowel incontinence. No numbness/tingling in the legs or feet. Denies other symptoms. Denies hx of similar injuries. Has been on narcotics only after gallbladder surgery and one short course with a sports injury. PDMP with no narcotic fills. Pt on adderall for ADHD. Family History of back surgeries. MedHx: ADHD Medications: Reviewed. PDMP reviewed. 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 PCP is Dr. Brooks at [facility]. No family in the area, lives along and independently ambulatory. Principal Diagnosis Lumbar back pain Discharge Exam Constitutional WD/WN, vitals as above Respiratory normal respiratory effort, lungs clear to auscultation Cardiovascular RRR, no murmur, no edema Gastrointestinal (Abdomen) Inspection/Auscultation: abdomen normal to inspection and normal bowel sounds; abdomen not distended Musculoskeletal Extremities: extremities normal to inspection and + abnormal strength (lower extremity weakness ) Skin no rashes, warm and dry Neurologic moves all extremities and awake Psychiatric A+Ox3, euthymic affect Discharge Data Allergies Allergy/AdvReac Type Severity Reaction Status Date / Time sulfamethoxazole Allergy Hives Verified 12/28/19 22:27 [From Bactrim] trimethoprim [From Bactrim] Allergy Hives Verified 12/28/19 22:27 Consultations 12/29/19 00:48 ED Decision to Admit Stat 12/29/19 09:01 Consult Orthopedic Surgery Routine 12/31/19 15:45 Consult Pain Management Routine Ordered Studies 12/29/19 00:44 MR lumbar spine wo con Urgent Hospital Course (1) Intractable low back pain: - MRI with small disc protrusion L5-S1 with degenerative changes and retrolisthesis. No radiculopathy - per surgery consult, conservative treatment for now with rest over the next 24 - 48 hours. Per pain management, continue conservative treatment with current medications. No indication for interventional treatment at this time. - Continue prednisone 50 mg po daily - will taper - continue lidocaine patches, baclofen, tramadol 50 mg q6h - baclofen was increased to tid - PT outpatient (2) ADHD: Hold Adderal until finished taking Tramadol to avoid interaction. Recommended patient talk to Adderal prescriber if she needs to resume before her back pain resolves Total Time Total Time Spent Total Time Spent (In Minutes): greater than 30 minutes Discharge Plan Discharge Items Patient Disposition: Home - Self-Care Reason For Visit: BACK PAIN Discharge Diagnosis: Back pain Condition on Discharge: Good Activity: Resume your previous activity Activity Comment: slowly as tolerated Driving/Machine Use: Do not drive while taking tramadol. Non-emergency contact: Primary Care Provider Call non-emergency contact if: you have any medication questions and your symptoms worsen Follow-up/Referrals: [facility] [Primary Care Provider] - 01/08/20 11:00 am (Follow up in one week ) Diet: Regular Addtl Attending Provider Instructions: (1) Intractable low back pain: Your MRI showed a small disc protrusion at L5-S1 -You will taper the steroids you're taking as follows: prednisone 40 mg po daily x2 days, 20 mg daily x 3 days, 10 mg daily x 3 days and then stop - continue lidocaine patches, baclofen, and tramadol 50 mg q6h as needed. The baclofen has been increased to three times per day starting today. If you don't feel that you need more than twice per day you can stick to twice per day dosing depending on how you feel. - You will be given a prescription to take with you for physical therapy. You can take this script to the physical therapy facility of your choice. - Do no drive while taking tramadol. You should wait to resume driving until you can walk more normally and no longer require the walker Please hold your Adderal while taking tramadol. You can call and discuss with your prescribing provider if you need to restart your Adderal before then Pending Studies at Discharge: No Stand-Alone Forms: My [facility], Opioid Pain Management, Work/School Release (Inpt), Smoking Cessation Medications and DC Order Prescriptions: New ibuprofen 800 mg tablet 800 mg PO Q8H PRN (Reason: pain) Qty: 30 RF: 0 prednisone 20 mg Tablet 40 mg PO DAILY Qty: 9 RF: 0 acetaminophen 500 mg Tablet 1,000 mg PO Q8H Qty: 42 RF: 0 baclofen 10 mg Tablet 10 mg PO TID Qty: 42 RF: 0 lidocaine 5 % Adhesive Patch,Medicated 1 patch transdermal QAM Qty: 14 RF: 0 tramadol 50 mg Tablet 50 mg PO Q6H PRN (Reason: pain) Qty: 12 RF: 0 pantoprazole 40 mg tablet,delayed release (DR/EC) 40 mg PO DAILY Qty: 14 RF: 0 Continued dextroamphetamine-amphetamine [Adderall] 10 mg Tablet 10 mg PO BID RF: 0 Discharge Orders: Discharge Order (Routine); Ordered 01/01/20 Ordered By: Raysa Sanchez/Other Patient Handouts: Back Safety Into and Out Bed, Back Safety: Bending, Back Safety: Lifting Admission Data Admit Date/Time: 12/29/19 03:18 Attending Provider: Elie Catalan Admit Provider: Giovani Kearns Primary Care Provider: [facility] Other Providers: Ming Aguirre ; Cash Cobian ; Tiffanie Corrales Other Interventions: Discharge Summary Assessment (RN) Last Done: 01/01/20 12:17 Supervising Physician Co-Signing Physician Notes Patient seen and examined on the day of discharge. I agree with the discharge summary by Raysa HSU. I have reviewed the chart including labs, imag ing and plans for discharge. patient doing better, still with pain and mobility is decreased eating well, making urine, moving bowels will d/c to home - Acute lumbar back pain with small disc protrusion L5/S1 but no severe impingement of nerve root improved with steroids, pain control, PT will send out on Prednisone taper, Baclofen TID, Ultram, Lidoderm patch PT script provided to start once she is at home follow up with PCP Coding Level of Care Code D/C Day Management >30 mins Diagnoses Intractable low back pain M54.5 ADHD F90.9
== END 2020-01-01 13:35 | disposition home or self-care (01) ==
LOC: 3W 22:02 → ED 22:02 → SUATTDRO 12-29 03:18 → 3W 12-29 03:41